=== PATIENT | male | born 2000 | race Caucasian/White ===

== ENCOUNTER 2020-05-27 06:04 | Emergency (ER) | payer SELFPAY ==
--- NOTE | 2020-05-27 08:21 | ER Document Report ---
ED General - General Chief Complaint: Laceration Stated Complaint: LACERATION TO RIGHT FINGER Time Seen by Provider: 05/27/20 07:47 Notes: Patient presents with laceration to the right pinky finger with scissors approximately 8 hours ago. Was cutting something up. Bled a lot so he put electrical tape on it. Vaccinations up-to-date just got out of the . Feels numb but he had a very tight piece of electrical tape on it. Also cut his palm on the opposite hand about 2 days ago. - Related Data Allergies/Adverse Reactions: No Known Allergies Allergy (Unverified 05/27/20 06:14) Past Medical History - General Information source: Patient - Social History Smoking Status: Current Every Day Smoker Frequency of alcohol use: None Drug Abuse: None Family History: None Patient has homicidal ideation: No Review of Systems - Review of Systems Notes: REVIEW OF SYSTEMS GEN: Denies fever, chills, weight loss ENT: Denies sore throat, nasal discharge, ear pain EYES: Denies blurry vision, eye pain, discharge CV: Denies chest pain, palpitations, edema RESP: Denies cough, shortness of breath, wheezing GI: Denies abdominal pain, nausea, vomiting, diarrhea MSK: Denies joint pain/swelling, edema, SKIN: Laceration LYMPH: Denies swollen glands/lymph nodes NEURO: Denies headache, focal weakness or numbness, dizziness PSYCH: Denies depression, suicidal or homicidal ideation PHYSICAL EXAMINATION General: No acute distress, well-nourished Head: Atraumatic, normocephalic ENT: Mouth normal, oropharynx moist, lips normal Eyes: Conjunctiva normal, pupils equal, lids normal Neck: No JVD, supple, no guarding Resp: No resp distress, equal chest rise GI: Nondistended, no guarding Back: No midline or CVA tenderness Ext: No deformities, no edema Skin: 4 mm laceration to the ulnar aspect right around the middle phalangeal segment of the right fifth digit Neuro: Awake, alert. Face symmetric. Course - Re-evaluation Re-evalutation: 05/27/20 08:20 Neuro intact laceration more like a puncture wound bleeding has stopped. Will irrigate and cover but does not need repair. Opposite hand has a small scratch that is also 2 days old Repair tetanus not indicated, local wound care discharge home. I have discussed with the patient there likely diagnosis, aftercare plan, follow-up plans and my usual and customary return precautions. They verbalized understanding of this. Discharge - Discharge Clinical Impression: Finger laceration Qualifiers: Encounter type: initial encounter Finger: little finger Damage to nail status: without damage Foreign body presence: without foreign body Laterality: right Qualified Code(s): S61.216A - Laceration without foreign body of right little finger without damage to nail, initial encounter Condition: Good Disposition: HOME, SELF-CARE Instructions: Antibiotic Ointment Protection (OM), Laceration Care ([facility])
[2020-05-27 08:52] VITALS: BP 148/64
== END 2020-05-27 08:52 | disposition home or self-care (01) ==
LOC: ER 06:04
DX: S61.216A Laceration without foreign body of right little finger without damage to nail, initial encounter (principal); W26.8XXA Contact with other sharp object(s), not elsewhere classified, initial encounter; Y93.89 Activity, other specified; S61.412A Laceration without foreign body of left hand, initial encounter; W45.8XXA Other foreign body or object entering through skin, initial encounter; R20.0 Anesthesia of skin; F17.200 Nicotine dependence, unspecified, uncomplicated
CPT/HCPCS: 99282